=== PATIENT | female | born 1965 ===

== ENCOUNTER 2018-05-06 06:40 | Inpatient (IN) | payer OTHER ==
[~2018-05-06] VITALS: Ht 157.5 cm; Wt 68.0 kg
== END 2018-05-07 10:02 | disposition home or self-care (01) | DRG 747 ==
LOC: CIR.AMB 06:40 → O/R 10:43 → OB/GYN 11:26 → CIR.AMB 14:45 → OB/GYN 05-07 10:02
PROVIDERS: Obstetrics & Gynecology Gynecology
PROC: 0JQC0ZZ Repair Pelvic Region Subcutaneous Tissue and Fascia, Open Approach (ICD-10-PCS; 2018-05-06)
PROC: 0UQF7ZZ Repair Cul-de-sac, Via Natural or Artificial Opening (ICD-10-PCS; principal; 2018-05-06 14:45)
DX: N81.3 Complete uterovaginal prolapse (principal)